=== PATIENT | female | born 1980 | race Two or more races ===

== ENCOUNTER 2021-03-21 13:58 | Outpatient (CLI) | payer OTHER | END 2021-03-21 14:17 | disposition home or self-care (01) | LOC: MRI 13:58 | DX: M67.462 Ganglion, left knee (principal); M25.561 Pain in right knee; R22.42 Localized swelling, mass and lump, left lower limb | CPT/HCPCS: 73721 ==

== ENCOUNTER 2021-10-17 11:06 | Outpatient (CLI) | payer OTHER | END 2021-10-17 11:16 | disposition home or self-care (01) | LOC: MAMO-SONO 11:06 | PROVIDERS: ATTEND Obstetrics & Gynecology | DX: R10.2 Pelvic and perineal pain (principal); N63.0 Unspecified lump in unspecified breast; N64.59 Other signs and symptoms in breast; N64.9 Disorder of breast, unspecified ==

== ENCOUNTER 2021-10-21 10:45 | Outpatient (CLI) | payer OTHER | END 2021-10-21 10:52 | disposition home or self-care (01) | LOC: RAD 10:45 | DX: M99.01 Segmental and somatic dysfunction of cervical region (principal) ==

== ENCOUNTER 2021-10-28 08:57 | Outpatient (CLI) | payer OTHER | END 2021-10-28 09:45 | disposition home or self-care (01) | LOC: LAB 08:57 | DX: D68.9 Coagulation defect, unspecified (principal); E78.2 Mixed hyperlipidemia; N39.0 Urinary tract infection, site not specified; R07.9 Chest pain, unspecified ==

== ENCOUNTER 2022-01-15 06:02 | Day surgery (SDC) | payer OTHER ==
[~2022-01-15] VITALS: Ht 154.9 cm; Wt 72.6 kg
== END 2022-01-15 17:30 | disposition home or self-care (01) ==
LOC: CIR.AMB 06:02
PROVIDERS: ATTEND Obstetrics & Gynecology
DX: N84.0 Polyp of corpus uteri (principal); Z20.822 Contact with and (suspected) exposure to COVID-19

== ENCOUNTER 2023-01-21 12:14 | Outpatient (CLI) | payer OTHER | END 2023-01-21 12:18 | disposition home or self-care (01) | LOC: MAMO-SONO 12:14 | PROVIDERS: ATTEND Obstetrics & Gynecology | DX: N63.0 Unspecified lump in unspecified breast (principal); N64.9 Disorder of breast, unspecified; N64.59 Other signs and symptoms in breast; Z12.31 Encounter for screening mammogram for malignant neoplasm of breast; N94.0 Mittelschmerz; R10.2 Pelvic and perineal pain; N94.89 Other specified conditions associated with female genital organs and menstrual cycle ==

== ENCOUNTER 2024-08-21 08:57 | Outpatient (CLI) | payer OTHER | END 2024-08-21 09:13 | disposition home or self-care (01) | LOC: MAMO-SONO 08:57 | PROVIDERS: ATTEND Obstetrics & Gynecology | DX: N63 Unspecified lump in breast (principal); N64.59 Other signs and symptoms in breast; N64.9 Disorder of breast, unspecified; N94.0 Mittelschmerz; R10.2 Pelvic and perineal pain; N94.89 Other specified conditions associated with female genital organs and menstrual cycle ==

== ENCOUNTER 2024-10-08 13:04 | Outpatient (CLI) | payer OTHER | END 2024-10-08 13:13 | disposition home or self-care (01) | LOC: SONOGRAMA 13:04 | PROVIDERS: ATTEND Obstetrics & Gynecology | DX: E03.9 Hypothyroidism, unspecified (principal); R31.21 Asymptomatic microscopic hematuria; E27.49 Other adrenocortical insufficiency; R79.89 Other specified abnormal findings of blood chemistry; E78.00 Pure hypercholesterolemia, unspecified; Z00.8 Encounter for other general examination ==